=== PATIENT | male | born 1980 ===

== ENCOUNTER 2018-07-01 19:36 | Emergency (ER) | payer OTHER, SELFPAY ==
[2018-07-01 19:36] VITALS: BMI 25.8
[2018-07-01 19:45] VITALS: BP 139/86; PULSE 91; RESP 17; TEMP 98.3; O2SAT 98
--- NOTE | 2018-07-01 20:32 | ED PDOC ---
HPI: Psych/Substance Abuse Time Seen by Provider: 07/01/18 19:47 Chief Complaint (Nursing): Alcohol Ingestion Chief Complaint (Provider): Alcohol Ingestion ED Caveat: Intoxicated History Per: Patient, EMS History/Exam Limitations: intoxication Current Symptoms Are (Timing): Still Present Modifying Factor(s): Alcohol Additional Complaint(s): 38 year old male arrives to ED via EMS for evaluation of alcohol intoxication. Patient was found sleeping on sidewalk with unsteady and alcohol on breath once awoken. He admits to drinking alcohol earlier today but feels well at present. Otherwise: (-) trauma, (-) bodily injuries, (-) headache, (-) chest pain, (-) abdominal pain, (-) nausea, or (-) vomiting. Past Medical History Reviewed: Historical Data, Nursing Documentation, Vital Signs Vital Signs: Last Vital Signs Temp 98.3 F 07/01/18 19:42 Pulse 91 H 07/01/18 19:42 Resp 17 07/01/18 19:42 BP 139/86 07/01/18 19:42 Pulse Ox 98 07/01/18 19:42 - Medical History PMH: Fractures (DISTAL FIBULA) Denies: Chronic Kidney Disease - Family History Family History: States: Unknown Family Hx - Immunization History Hx Tetanus Toxoid Vaccination: No Hx Influenza Vaccination: No Hx Pneumococcal Vaccination: No - Home Medications Home Medications: Ambulatory Orders Medication Instructions Recorded No Known Home Med 10/16/17 - Allergies Allergies/Adverse Reactions: Allergies Allergy/AdvReac Type Severity Reaction Status Date / Time No Known Allergies Allergy Verified 07/01/18 19:45 Review of Systems ROS Statement: Except As Marked, All Systems Reviewed And Found Negative Cardiovascular: Negative for: Chest Pain Gastrointestinal: Negative for: Nausea, Vomiting, Abdominal Pain Neurological: Negative for: Headache Physical Exam - Reviewed Nursing Documentation Reviewed: Yes Vital Signs Reviewed: Yes - Physical Exam Comments: GENERAL APPEARANCE: Patient is awake, alert, oriented x 3, in no acute distress. SKIN: Warm, dry; (-) cyanosis. CHEST AND RESPIRATORY: (-) wheezing; (-) rales, (-) rhonchi, (-) rub; breath sounds equal bilaterally. HEART AND CARDIOVASCULAR: (-) irregularity; (-) murmur, (-) gallop. EXTREMITIES: (-) deformity, (-) edema. NEURO AND PSYCH: Mental status as above; (-) focal findings. Steady gait. - ECG O2 Sat by Pulse Oximetry: 98 (RA) Pulse Ox Interpretation: Normal Medical Decision Making Medical Decision Making: Time: 2032 --Patient is clinically sober; AAOx3, speaking in full sentences, no slurred speech, no tremors, with steady gait. Patient is stable for d/c. Advised to follow up with the clinic, return to the emergency room at any time for any new or worsening symptoms. Patient states he fully agrees with and understands discharge instructions. States that he agrees with the plan and disposition. Verbalized and repeated discharge instructions and plan. I have given the patient opportunity to ask any additional questions. Scribe Attestation: Documented by Brenda Almeida, acting as a scribe for Bailey Orr PA-C. Provider Scribe Attestation: All medical record entries made by the Scribe were at my direction and personally dictated by me. I have reviewed the chart and agree that the record accurately reflects my personal performance of the history, physical exam, medical decision making, and the department course for this patient. I have also personally directed, reviewed, and agree with the discharge instructions and disposition. Disposition - Clinical Impression Clinical Impression: Alcohol intoxication - Patient ED Disposition Is Patient to be Admitted: No - Disposition Referrals: formerly [facility] [Outside] Disposition: Routine/Home Disposition Time: 20:30 Condition: STABLE Instructions: Alcohol Abuse and Alcoholism (DC) Forms: [employer] (Slovenian) Print Language: PORTUGUESE - PA / SENIOR FRONT END DEVELOPER / Resident Statement MD/ has reviewed & agrees with the documentation as recorded.
== END 2018-07-01 20:45 | disposition home or self-care (01) ==
LOC: H.ER 19:36
DX: F10.129 Alcohol abuse with intoxication, unspecified (principal)